=== PATIENT | male | born 1985 | race Caucasian/White ===

== ENCOUNTER 2022-05-25 07:20 | Emergency (ER) | payer SELFPAY ==
[2022-05-25] MEDS ORDERED: NA CHLORIDE 0.9% 1,000 ML ONE (08:16)
[2022-05-25 08:39] LABS: Absolute Lymphocytes (CBC) 1.8 K/uL (0.7-4.9); Hematocrit 47.2 % (39.6-49.0); Lymphocytes % 30.5 % (15.3-44.8); MCV 98.4 fL (80-100); MPV 8.1 fL (7.6-11.3); RBC Red Blood Cell Count 4.79 M/uL (4.33-5.43)
--- NOTE | 2022-05-25 08:57 | RAD REPORT ---
EXAM DESCRIPTION: RAD - Chest Single View - 05/25/2022 8:27 am CLINICAL HISTORY: COUGH, COVID positive COMPARISON: None TECHNIQUE: AP portable chest image was obtained 05/25/2022 8:27 am . FINDINGS: Lungs are clear. Heart and vasculature are normal. No measurable pleural effusion and no p neumothorax. No acute bony abnormality seen. No acute aortic findings suspected. IMPRESSION: No COVID related finding or other acute cardiopulmonary process.
[2022-05-25 09:20] LABS: Potassium 3.8 mmol/L (3.5-5.1); Troponin High Sensitivity 4.9 pg/mL (<58.9)
--- NOTE | 2022-05-25 09:44 | EDPHYS ---
Physician Documentation [facility] Name: Adán Baer Age: 37 yrs Sex: Male : 1985 Arrival Date: 05/25/2022 Time: 07:24 Bed DIS5 Private MD: ED Physician Brian Stevenson HPI: 05/25 08:48 This 37 yrs old Male presents to ER via Ambulatory with complaints of Covid+, Cough, ms3 Congestion. 08:48 The patient or guardian reports cough. Onset: The symptoms/episode began/occurred ms3 acutely, 1 week(s) ago. Severity of symptoms: At their worst the symptoms were moderate, in the emergency department the symptoms are unchanged. Modifying factors: The symptoms are alleviated by nothing, the symptoms are aggravated by nothing. Associated signs and symptoms: Pertinent positives: chest pain. 37-year-old male with past medical history of hypertension presents for body aches, shortness of breath, chest pain, chills that began 1 week ago when he was diagnosed with pneumonia. Patient saw his primary care physician on Wednesday and was diagnosed with pneumonia and told to come to the emergency department if he had not improved by today. Patient endorses decreased p.o., shortness of breath, chest pain, chills. Patient states his discomfort is a 6/10 and described as aching.. Historical: - Allergies: 07:52 No Known Allergies; vg1 - Home Meds: 07:53 Metoprolol Tartrate Oral [Active]; vg1 - PMHx: 07:52 Hypertensive disorder; vg1 - Immunization history:: Client reports having NOT received the Covid vaccine. - Social history:: Smoking status: Reported history of juuling and/or vaping. Patient/guardian denies using tobacco, Stopped _ months ago 2. ROS: 08:48 Constitutional: Negative for fever, and chills. ENT: Negative for injury, pain, and ms3 discharge, Neck: Negative for injury, pain, and swelling. 08:48 MS/Extremity: Negative for injury and deformity, Skin: Negative for injury, rash, and discoloration. 08:48 Cardiovascular: Positive for chest pain. 08:48 Respiratory: Positive for cough, shortness of breath. 08:48 All other systems are negative. Exam: 07:57 ECG was reviewed by the Attending Physician. ms3 08:48 Constitutional: This is a well developed, well nourished patient who is awake, alert, ms3 and in no acute distress. Head/Face: Normocephalic, atraumatic. Neck: Trachea midline, no cervical lymphadenopathy. Supple, full range of motion without nuchal rigidity, or vertebral point tenderness. No Meningismus. Chest/axilla: Normal chest wall appearance and motion. Nontender with no deformity. Cardiovascular: Regular rate and rhythm with a normal S1 and S2. No gallops, murmurs, or rubs. Normal PMI, no JVD. No pulse deficits. Respiratory: Lungs have equal breath sounds bilaterally, clear to auscultation and percussion. No rales, rhonchi or wheezes noted. No increased work of breathing, no retractions or nasal flaring. Abdomen/GI: Soft, non-tender, with normal bowel sounds. No distension or tympany. No guarding or rebound. No evidence of tenderness throughout. Skin: Warm, dry with normal turgor. Normal color with no rashes, no lesions, and no evidence of cellulitis. MS/ Extremity: Pulses equal, no cyanosis. Neurovascular intact. Full, normal range of motion. Psych: Awake, alert, with orientation to person, place and time. Behavior, mood, and affect are within normal limits. Vital Signs: 07:46 BP 138 / 101; Pulse 90; Resp 16; Temp 98.2; Pulse Ox 98% on R/A; Weight 108.41 kg; vg1 Height 5 ft. 10 in. (177.80 cm); Pain 6/10; 07:46 Body Mass Index 34.29 (108.41 kg, 177.80 cm) vg1 MDM: 08:14 Patient medically screened. ms3 08:48 Differential Diagnosis: Bronchitis Influenza Upper Respiratory Infection Sinusitis ms3 Viral Syndrome Pneumonia. 09:43 Data reviewed: vital signs, nurses notes, lab test result(s), EKG, radiologic studies, ms3 and as a result, I will discharge patient. Counseling: I had a detailed discussion with the patient and/or guardian regarding: the historical points, exam findings, and any diagnostic results supporting the discharge/admit diagnosis, lab results, radiology results, the need for outpatient follow up, to return to the emergency department if symptoms worsen or persist or if there are any questions or concerns that arise at home. ED course: Discussed lab, EKG, CXR , PE findings with patient. Patient to follow up with PMD in 2-3 days. Patient understands/ agrees with plan. All questions answered. Return precautions given to include worsening symptoms, or any other concerns. Patient is improved, in NAD, non-toxic appearing, ambulatory in ED, speaking full sentences. . 05/25 07:58 Order name: Basic Metabolic Panel; Complete Time: 09:42 ms3 05/25 07:58 Order name: CBC with Diff; Complete Time: 09:42 ms3 05/25 07:58 Order name: Troponin HS; Complete Time: 09:42 ms3 05/25 07:58 Order name: XRAY Chest (1 view); Complete Time: 09:42 ms3 05/25 07:58 Order name: EKG; Complete Time: 07:58 ms3 05/25 07:58 Order name: Cardiac monitoring ms3 05/25 07:58 Order name: EKG - Nurse/Tech; Complete Time: 08:06 ms3 05/25 07:58 Order name: IV Saline Lock; Complete Time: 08:06 ms3 05/25 07:58 Order name: Labs collected and sent; Complete Time: 08:06 ms3 05/25 07:58 Order name: O2 Per Protocol; Complete Time: 08:06 ms3 05/25 07:58 Order name: O2 Sat Monitoring; Complete Time: 08:06 ms3 EC:57 Rate is 83 beats/min. Rhythm is regular. QRS [place] is Normal. MA interval is normal. T ms3 waves are Normal. No ST changes noted. Clinical impression: Normal ECG. Interpreted by me. Reviewed by me. Administered Medications: 08:11 Drug: NS 0.9% 1000 ml Route: IV; Rate: 1000 ml; Site: left antecubital; tp1 09:20 Follow up: Response: No adverse reaction; IV Status: Completed infusion; IV Intake: tp1 1000ml Disposition Summary: 05/25/22 09:43 Discharge Ordered Location: Home ms3 Condition: Stable ms3 Diagnosis - SARS-associated coronavirus as the cause of diseases classified elsewhere ms3 - Myalgia ms3 Followup: ms3 - With: Alexander Lazo, DO - When: 5 - 6 days - Reason: Recheck today's complaints Discharge Instructions: - Discharge Summary Sheet ms3 - COVID-19 ms3 - 10 Things You Can Do to Manage Your COVID-19 Symptoms at Home - [facility] ms3 Forms: - Medication Reconciliation Form ms3 - Thank You Letter ms3 - Antibiotic Education ms3 - Prescription Opioid Use ms3 Prescriptions: - Tessalon Perles 100 mg Oral Capsule - take 1 capsule by ORAL route every 8 hours As needed; 15 capsule; Refills: 0, ms3 Product Selection Permitted Signatures: Dispatcher [employer] Sanjuanita Dominique RN RN vg1 Brian Stevenson, DO ms3 Анна Marcum tp1
--- NOTE | 2022-05-25 09:44 | ER ---
Nurse's Notes [facility] Name: Adán Baer Age: 37 yrs Sex: Male : 1985 Arrival Date: 05/25/2022 Time: 07:24 Bed DIS5 Private MD: Diagnosis: SARS-associated coronavirus as the cause of diseases classified elsewhere;Myalgia Presentation: 05/25 07:46 Chief complaint: Patient states: Covid positive 05/17/22; dx with pneumonia on vg1 Wednesday via [facility]. Continues to cough, loss of appetite , NVD. Coronavirus screen: Vaccine status: Patient reports being unvaccinated. Client denies travel out of the [place] in the last 14 days. Ebola Screen: Patient denies exposure to infectious person. Patient denies travel to an Ebola-affected area in the 21 days before illness onset. Initial Sepsis Screen: Does the patient meet any 2 criteria? No. Patient's initial sepsis screen is negative. Does the patient have a suspected source of infection? No. Patient's initial sepsis screen is negative. Risk Assessment: Do you want to hurt yourself or someone else? Patient reports no desire to harm self or others. Onset of symptoms was May 17, 2022. 07:46 Method Of Arrival: Ambulatory vg1 07:46 Acuity: ITALO 3 vg1 Triage Assessment: 07:53 General: Appears uncomfortable, Behavior is calm, cooperative. Pain: Complains of pain vg1 in chest Pain currently is 6 out of 10 on a pain scale. Respiratory: Airway is patent Respiratory effort is even, unlabored, Breath sounds are clear bilaterally. Historical: - Allergies: 07:52 No Known Allergies; vg1 - Home Meds: 07:53 Metoprolol Tartrate Oral [Active]; vg1 - PMHx: 07:52 Hypertensive disorder; vg1 - Immunization history:: Client reports having NOT received the Covid vaccine. - Social history:: Smoking status: Reported history of juuling and/or vaping. Patient/guardian denies using tobacco, Stopped _ months ago 2. Screenin:52 Abuse screen: Denies threats or abuse. Denies injuries from another. Nutritional ss screening: No deficits noted. Tuberculosis screening: Never had TB. Fall Risk None identified. Assessment: 09:30 Reassessment: Patient appears in no apparent distress at this time. No changes from vg1 previously documented assessment. Patient and/or family updated on plan of care and expected duration. Pain level reassessed. Patient is alert, oriented x 3, equal unlabored respirations, skin warm/dry/pink. 09:52 General: Appears in no apparent distress. comfortable, Behavior is calm, cooperative. ss Respiratory: Airway is patent Respiratory effort is even, unlabored, Respiratory pattern is regular, symmetrical. Derm: Skin is pink, warm \T\ dry. normal. Vital Signs: 07:46 BP 138 / 101; Pulse 90; Resp 16; Temp 98.2; Pulse Ox 98% on R/A; Weight 108.41 kg; vg1 Height 5 ft. 10 in. (177.80 cm); Pain 6/10; 07:46 Body Mass Index 34.29 (108.41 kg, 177.80 cm) vg1 ED Course: 07:24 Patient arrived in ED. mr 07:26 Brian Stevenson DO is Attending Physician. ms3 07:52 Triage completed. vg1 07:53 Arm band placed on. vg1 07:59 EKG completed in triage. Results shown to MD. vg1 08:06 Initial lab(s) drawn, by sd, sent to lab. Inserted saline lock: 20 gauge in left vg1 antecubital area, using aseptic technique. Blood collected. 08:12 Warm blanket given. tp1 08:29 XRAY Chest (1 view) In Process Unspecified. EDMS 09:42 Alexander Lazo DO is Referral Physician. ms3 09:52 Jacey Mcdonough, RN is Primary Nurse. ss 09:52 Patient has correct armband on for positive identification. Bed in low position. Call ss light in reach. 09:52 No provider procedures requiring assistance completed. IV discontinued, intact, ss bleeding controlled, No redness/swelling at site. Pressure dressing applied. Administered Medications: 08:11 Drug: NS 0.9% 1000 ml Route: IV; Rate: 1000 ml; Site: left antecubital; tp1 09:20 Follow up: Response: No adverse reaction; IV Status: Completed infusion; IV Intake: tp1 1000ml Medication: 09:52 VIS not applicable for this client. ss Intake: 09:20 IV: 1000ml; Total: 1000ml. tp1 Outcome: 09:43 Discharge ordered by . ms3 09:52 Discharged to home ambulatory. 09:52 Condition: good 09:52 Discharge instructions given to patient, family, Instructed on discharge instructions, follow up and referral plans. medication usage, Demonstrated understanding of instructions, follow-up care, medications, Prescriptions given X 1. 09:53 Patient left the ED. Signatures: Dispatcher [employer] EDCT Alams Taylor mr Jacey Mcdonough RN RN ss Sanjuanita Worrell RN RN 1 Brian Stevenson DO DO ms3 Анна Marcum tp1
[2022-05-25 10:21] VITALS: BP 138/101; TEMP 98.2; O2SAT 98
--- NOTE | 2022-05-26 08:18 | EKG ---
Test Date: 2022-05-25 Test Time: 07:57:17 Coordinator Volunteer Services: TP MEASUREMENT RESULTS: Intervals: Rate: 83 [place]: 158 QRSD: 80 QT: 380 QTc: 446 [place]: P: 66 [place]: 158 QRS: 52 T: 49 INTERPRETIVE STATEMENTS: Normal sinus rhythm Normal ECG No previous ECG available for comparison Electronically Signed On 05-26-22 08:12:54 CDT by Janes Bettencourt
== END 2022-05-25 09:53 | disposition home or self-care (01) ==
LOC: ER 07:20
DX: U07.1 COVID-19 (principal); M79.10 Myalgia, unspecified site; I10 Essential (primary) hypertension
CPT/HCPCS: 36415; 71045; 80048; 84484; 85025; 93005; 96360; 99284; J7030

== ENCOUNTER 2022-06-04 17:40 | Emergency (ER) | payer SELFPAY ==
[2022-06-04] MEDS ORDERED: MORPHINE 4 MG/ML SYR ONE ×2 (19:09→21:54)
[2022-06-04] MEDS ORDERED: ONDANSETRON 4 MG/2 ML VIAL ONE (19:10)
[2022-06-04 19:21] LABS: Protime INR 1.03
[2022-06-04 19:23] LABS: Absolute Lymphocytes (CBC) 0.9 K/uL (0.7-4.9); Hematocrit 48.6 % (39.6-49.0); Lymphocytes % 5.4 % (15.3-44.8); MCV 98.2 fL (80-100); MPV 8.3 fL (7.6-11.3); RBC Red Blood Cell Count 4.94 M/uL (4.33-5.43)
[2022-06-04 19:45] LABS: Albumin 3.7 g/dL (3.4-5.0); Bilirubin Direct 0.2 mg/dL (0-0.2); Bilirubin Total 0.6 mg/dL (0.2-1.0); Magnesium 1.8 mg/dL (1.8-2.4); Protein, Total 7.8 g/dL (6.4-8.2); Troponin High Sensitivity 4.7 pg/mL (<58.9)
--- NOTE | 2022-06-04 20:38 | RAD REPORT ---
EXAM DESCRIPTION: RAD - Chest Single View - 06/04/2022 8:03 pm CLINICAL HISTORY: Chest pain COMPARISON: Portable 05/25/2022 TECHNIQUE: AP portable chest image was obtained 06/04/2022 8:03 pm . FINDINGS: Lungs are clear. Heart and vasculature are normal. No measurable pleural effusion and no p neumothorax. No acute bony abnormality seen. No acute aortic findings suspected. IMPRESSION: No acute cardiopulmonary process. No significant change from comparison study.
--- NOTE | 2022-06-04 20:43 | RAD REPORT ---
EXAM DESCRIPTION: CT - Chest For Pe Angio - 06/04/2022 8:25 pm CLINICAL HISTORY: Chest pain, shortness of breath COMPARISON: No comparisons TECHNIQUE: Dynamically enhanced 3 mm thick images of the chest were obtained during administration o f approximately 150mL Isovue 370 IV contrast. Coronal and oblique MIP reconstruction images were gene rated and reviewed. Exam utilizes a protocol to evaluate the pulmonary arterial tree. All CT scans are performed using dose optimization technique as appropriate and may include automated exposure control or mA/KV adjustment according to patient size. FINDINGS: No pulmonary emboli are identified. The aorta as imaged shows no acute or suspicious finding. No pericardial thickening or effusion. No infiltrate or mass in the lung parenchyma. Minimal bilateral pleural effusions. No mediastinal or hilar mass or abnormal lymphadenopathy seen. No chest wall masses or abnormal axill asim lymphadenopathy. There is circumferential wall thickening seen along the entire course of the thoracic esophagus. Ther e is congestion and edema seen in the adjacent fat. No extraluminal air or other finding to suspect e sophageal rent or tear. IMPRESSION: No pulmonary emboli identified. Prominent circumferential wall thickening along the entire course of the thoracic esophagus.There is congestion and edema in the adjacent fat. Small bilateral pleural fluid collections are present. There is no extraluminal air or other finding that would elevate probability of an esophageal rent or tear. Correlation is needed with any clinical findings for acute esophagitis or any history of eosinophilic esophagitis or other chronic esophageal condition.
--- NOTE | 2022-06-04 20:45 | RAD REPORT ---
EXAM DESCRIPTION: CT - Abdomen Pelvis W Contrast - 06/04/2022 8:25 pm CLINICAL HISTORY: LUQ abdominal pain COMPARISON: No comparisons TECHNIQUE: Biphasic, helical CT imaging of the abdomen and pelvis was performed following 100 ml non -ionic IV contrast. No oral contrast administered. All CT scans are performed using dose optimization technique as appropriate and may include automated exposure control or mA/KV adjustment according to patient size. FINDINGS: Minimal bilateral pleural effusions are present. There is circumferential wall thickening of the distal esophagus. Findings are further detailed on the CT chest report. The liver, spleen, and pancreas show no suspicious focal findings. Liver attenuation shows fatty infi ltration. No gallbladder or biliary tree abnormality. Symmetric renal function is seen with no hydronephrosis or suspicious renal mass. No pyelonephritis o r acute parenchymal process. No bladder abnormalities. No adrenal abnormalities. No dilated bowel loops or bowel wall thickening. No appendicitis. No free air, free fluid or inflamma tory stranding. No hernia, mass or bulky lymphadenopathy. No suspicious bony findings. IMPRESSION: Contrast enhanced CT abdomen and pelvis showing no acute or emergent finding. Circumferential wall thickening of the esophagus is present. Minimal bilateral pleural effusions are present. Findings are further detailed on the CT chest report.
--- NOTE | 2022-06-04 21:53 | EDPHYS ---
Physician Documentation [facility] Name: Adán Baer Age: 37 yrs Sex: Male : 1985 Arrival Date: 06/04/2022 Time: 17:41 Bed 10 Private MD: ED Physician Mac Colon HPI: 06/04 18:58 This 37 yrs old Male presents to ER via Wheelchair with complaints of Chest Pain, pm1 Shortness Of Breath. 18:58 The patient or guardian reports chest pain that is located primarily in the left lower pm1 anterior rib cage. The pain does not radiate. Associated signs and symptoms: Pertinent positives: shortness of breath. The chest pain is described as sharp, feels like he has a lump on his left lower rib cage from coughing. Modifying factors: The symptoms are alleviated by nothing. the symptoms are aggravated by cough. Severity of pain: in the emergency department the pain is unchanged. The patient has been recently seen by a physician: with similar presenting complaints, Patient was seen at [facility] for the same complaint yesterday with a cardiac work-up and CT chest. Patient with 2 negative troponins yesterday at office and was discharged home. Negative for any acute CT chest findings. Patient presenting here to the ER with the same complaints and would like further evaluation. Patient was diagnosed with COVID approximately 10 days ago. He tested negative with home test yesterday. ROS: 18:58 Constitutional: Negative for fever, chills, and weight loss. pm1 18:58 Back: Negative for injury and pain, MS/Extremity: Negative for injury and deformity, Skin: Negative for injury, rash, and discoloration, Neuro: Negative for headache, weakness, numbness, tingling, and seizure. 18:58 Cardiovascular: Positive for chest pain, Negative for edema, palpitations. 18:58 Respiratory: Positive for cough, shortness of breath, Negative for dyspnea on exertion. 18:58 Abdomen/GI: Positive for abdominal pain, of the left upper quadrant, Negative for nausea, vomiting, and diarrhea. 18:58 All other systems are negative. Exam: 18:58 Constitutional: This is a well developed, well nourished patient who is awake, alert, pm1 and in no acute distress. Head/Face: Normocephalic, atraumatic. 18:58 Eyes: Exam is negative for acute changes, Periorbital structures: no acute changes, Pupils: no acute changes, Extraocular movements: no acute changes, Conjunctiva: no acute changes, no injection. 18:58 Cardiovascular: Exam negative for acute changes, Rate: normal, Rhythm: regular, Pulses: no pulse deficits are appreciated, Heart sounds: normal, normal S1and S2. 18:58 Respiratory: Exam negative for acute changes, respiratory distress, shortness of breath, Breath sounds: are clear throughout. Vital Signs: 18:43 BP 149 / 109; Pulse 88; Resp 19; Temp 97.9; Pulse Ox 98% on R/A; iw MDM: 18:54 Patient medically screened. pm1 20:53 Data interpreted: Pulse oximetry: on room air is 98 %. Interpretation: normal. pm1 Counseling: I had a detailed discussion with the patient and/or guardian regarding: the historical points, exam findings, and any diagnostic results supporting the discharge/admit diagnosis, lab results, radiology results, the need for outpatient follow up, a lumpia wrapper maker, for EGD. 21:12 Data reviewed: vital signs. pm1 22:12 ED course: [place]. Patient given prescription for tramadol and Guaifenesin pm1 with codeine. Will not be able to give the patient Tylenol #3 as discussed with the patient prior to discharge. 22:14 ED course: Patient and his spouse requested prescription for Seroquel. Patient has not pm1 taken his Seroquel in 5 days and reports possibly onset of his symptoms due to not having it. Will refill his medication. 06/04 18:54 Order name: Basic Metabolic Panel; Complete Time: 19:54 pm1 06/04 18:54 Order name: CBC with Diff; Complete Time: 19:26 pm06/04 18:54 Order name: LFT's; Complete Time: 19:54 pm1 06/04 18:54 Order name: Magnesium; Complete Time: 19:54 pm1 06/04 18:54 Order name: NT PRO-BNP; Complete Time: 19:54 pm1 06/04 18:54 Order name: PT-INR; Complete Time: 19:26 pm1 06/04 18:54 Order name: Troponin HS; Complete Time: 19:54 pm1 06/04 18:54 Order name: XRAY Chest (1 view); Complete Time: 20:48 pm1 06/04 18:54 Order name: CT Chest For PE Angio; Complete Time: 20:48 pm1 06/04 18:54 Order name: CT Abd/Pelvis - IV Contrast Only; Complete Time: 20:48 pm1 06/04 18:54 Order name: SARS-COV-2 RT PCR (Document "Date of Onset" if Symptomatic); Complete Time: pm1 20:30 06/04 18:54 Order name: Flu; Complete Time: 20:05 pm1 06/04 18:54 Order name: EKG; Complete Time: 18:56 pm1 06/04 18:54 Order name: Cardiac monitoring; Complete Time: 22:28 pm06/04 18:54 Order name: EKG - Nurse/Tech; Complete Time: 22:29 pm06/04 18:54 Order name: IV Saline Lock; Complete Time: 19:19 pm1 06/04 18:54 Order name: Labs collected and sent; Complete Time: 19:19 pm1 06/04 18:54 Order name: O2 Per Protocol; Complete Time: 22:28 pm06/04 18:54 Order name: O2 Sat Monitoring; Complete Time: 22:28 pm1 EC:37 Rate is 101 beats/min. Rhythm is regular, Sinus tachycardia with No ectopy. QRS [place] is pm1 Normal. No Q waves. T waves are Normal. No ST changes noted. Clinical impression: Sinus tachycardia. Administered Medications: 19:19 Drug: morphine 4 mg Route: IVP; Infused Over: 4 mins; Site: right antecubital; iw 20:00 Follow up: Response: No adverse reaction; Marked relief of symptoms vc1 19:19 Drug: Zofran (Ondansetron) 4 mg Route: IVP; Site: right antecubital; iw 20:00 Follow up: Response: Marked relief of symptoms; Nausea is decreased vc1 21:51 Drug: morphine 4 mg Route: IVP; Infused Over: 4 mins; Site: right antecubital; vc1 22:28 Follow up: Response: No adverse reaction; Marked relief of symptoms vc1 Disposition Summary: 06/04/22 21:52 Discharge Ordered Location: Home pm1 Problem: new pm1 Symptoms: have improved pm1 Condition: Stable pm1 Diagnosis - Chest pain, unspecified pm1 - Abdominal pain, unspecified pm1 Followup: pm1 - With: Emergency Department - When: As needed - Reason: Worsening of condition Followup: pm1 - With: Private Physician - When: 2 - 3 days - Reason: Recheck today's complaints, Continuance of care, Re-evaluation by your physician Discharge Instructions: - Discharge Summary Sheet pm1 - Abdominal Pain, Adult pm1 - Nonspecific Chest Pain, Adult pm1 Forms: - Medication Reconciliation Form pm1 - Thank You Letter pm1 - Antibiotic Education pm1 - Prescription Opioid Use pm1 Prescriptions: - Seroquel XR 50 mg Oral tablet extended release 24 hr - take 1 tablet by ORAL route once daily; 14 tablet; Refills: 0, Product pm1 Selection Permitted Signatures: Dispatcher [employer] EDMS Latha Irizarry, RN RN iw Chuy Min NP AUTO LOCATOR pm1 Ana Rosa Beltran RN RN vc1
--- NOTE | 2022-06-04 21:53 | ER ---
Nurse's Notes [facility] Name: Adán Baer Age: 37 yrs Sex: Male : 1985 Arrival Date: 06/04/2022 Time: 17:41 Bed 10 Private MD: Diagnosis: Chest pain, unspecified;Abdominal pain, unspecified Presentation: 06/04 18:41 Chief complaint: Patient states: chest pains in middle od chest and can't breath since iw yesterday evening, had a cough on Wednesday , was coughing ro hard that he felt something pop on left side, went to [facility] yesterday and gave him a bunch of meds but he still can't sleep and can't take a deep breath, is fatigued , can't sleep , had COVID 3 weeks ago. Onset of symptoms was June 04, 2022. 18:41 Method Of Arrival: Wheelchair iw 18:41 Acuity: ITALO 3 iw 18:42 Ebola Screen: Patient negative for fever greater than or equal to 101.5 degrees iw Fahrenheit, and additional compatible Ebola Virus Disease symptoms Patient denies exposure to infectious person. Patient denies travel to an Ebola-affected area in the 21 days before illness onset. No symptoms or risks identified at this time. 18:43 Coronavirus screen: Client presents with at least one sign or symptom that may indicate iw coronavirus-19. Initial Sepsis Screen: Does the patient meet any 2 criteria? No. Patient's initial sepsis screen is negative. Does the patient have a suspected source of infection? No. Patient's initial sepsis screen is negative. Risk Assessment: Do you want to hurt yourself or someone else? Patient reports no desire to harm self or others. Triage Assessment: 22:26 General: Appears in no apparent distress. Behavior is calm, cooperative, appropriate vc1 for age. Pain: Complains of pain in chest. Screenin:25 Abuse screen: Denies threats or abuse. Nutritional screening: No deficits noted. vc1 Tuberculosis screening: No symptoms or risk factors identified. Fall Risk None identified. Vital Signs: 18:43 BP 149 / 109; Pulse 88; Resp 19; Temp 97.9; Pulse Ox 98% on R/A; iw ED Course: 17:41 Patient arrived in ED. am2 18:39 Chuy Min NP is PHCP. pm1 18:39 Mac Colon MD is Attending Physician. pm1 18:42 Triage completed. iw 18:43 Arm band placed on. iw 19:15 Initial lab(s) drawn, by ED staff, sent to lab. EKG done, COVID swab sent to lab. Flu iw and/or RSV swab sent to lab. Inserted saline lock: 20 gauge in left antecubital area, using aseptic technique. Blood collected. 20:05 XRAY Chest (1 view) In Process Unspecified. EDMS 20:27 CT Chest For PE Angio In Process Unspecified. EDMS 20:27 CT Abd/Pelvis - IV Contrast Only In Process Unspecified. EDMS 22:25 No provider procedures requiring assistance completed. IV discontinued, intact, vc1 bleeding controlled, No redness/swelling at site. Pressure dressing applied. Patient maintains SpO2 saturation greater than 95% on room air. Administered Medications: 19:19 Drug: morphine 4 mg Route: IVP; Infused Over: 4 mins; Site: right antecubital; iw 20:00 Follow up: Response: No adverse reaction; Marked relief of symptoms vc1 19:19 Drug: Zofran (Ondansetron) 4 mg Route: IVP; Site: right antecubital; iw 20:00 Follow up: Response: Marked relief of symptoms; Nausea is decreased vc1 21:51 Drug: morphine 4 mg Route: IVP; Infused Over: 4 mins; Site: right antecubital; vc1 22:28 Follow up: Response: No adverse reaction; Marked relief of symptoms vc1 Medication: 22:27 VIS not applicable for this client. vc1 Outcome: 21:52 Discharge ordered by . pm1 22:27 Discharged to home ambulatory, with significant other. vc1 22:27 Condition: good 22:27 Discharge instructions given to patient, Instructed on discharge instructions, follow up and referral plans. medication usage, Demonstrated understanding of instructions, follow-up care, medications, Prescriptions given X 1. 22:29 Patient left the ED. vc1 Signatures: Dispatcher [employer] Latha Tomlinson RN RN iw Chuy Min NP HAIR ROOTING MACHINE OPERATOR pm1 Shreya Noe am2 Ana Rosa Beltran RN RN vc1
[2022-06-05 02:19] VITALS: BP 149/109; TEMP 97.9; O2SAT 98
--- NOTE | 2022-06-05 15:20 | EKG ---
Test Date: 2022-06-04 Test Time: 19:13:42 [employer] Assistant: MEASUREMENT RESULTS: Intervals: Rate: 101 VT: 148 QRSD: 80 QT: 340 QTc: 440 [place]: P: 52 VT: 148 QRS: 24 T: 77 INTERPRETIVE STATEMENTS: Sinus tachycardia Otherwise normal ECG Compared to ECG 05/25/2022 07:57:17 Sinus rhythm no longer present Electronically Signed On 06-05-22 15:18:56 CDT by Blu Bernard
== END 2022-06-04 22:29 | disposition home or self-care (01) ==
LOC: ER 17:40
DX: R07.89 Other chest pain (principal); R10.12 Left upper quadrant pain
CPT/HCPCS: 36415; 71045; 71275; 74177; 80048; 80076; 83735; 83880; 84484; 85025; 85610; 87804; 93005; 96374; 96375; 99284; J2405; Q9967; U0003